=== PATIENT | female | born 1985 | race Caucasian/White ===

== ENCOUNTER 2019-09-22 16:05 | Emergency (ER) | payer OTHER ==
[~2019-09-22] VITALS: Ht 170.2 cm; Wt 86.2 kg
[2019-09-22] MEDS ORDERED: NORCO 5-325 TA1 EAC2 PO (17:17)
[2019-09-22] MEDS ORDERED: IBUPROFEN 800800 M1 PO (17:17)
[2019-09-22 17:20] VITALS: BP 160/112
== END 2019-09-22 17:20 | disposition home or self-care (01) ==
LOC: ER 16:05
DX: M25.512 Pain in left shoulder (principal); F17.210 Nicotine dependence, cigarettes, uncomplicated; Z88.0 Allergy status to penicillin; Z88.8 Allergy status to other drugs, medicaments and biological substances